=== PATIENT | female | born 1960 | race Caucasian/White ===

== ENCOUNTER 2016-03-04 08:02 | Observation (INO) | payer OTHER ==
--- NOTE | 2016-02-15 18:06 | DIAGNOSTIC IMAGING REPORT ---
CHEST 2 VIEWS ROUTINE HISTORY: Preop. COMPARISON: Chest 07/14/2005. FINDINGS: The lungs are clear. Cardiac silhouette is normal in size. No pleural effusions. No pneumothorax. Prior cholecystectomy. IMPRESSION: No acute process. Electronically signed by: Sanchez Sun M.D. 02/15/2016 6:04 PM Dictated Date/Time: 02/15/2016 6:03 PM
[2016-02-15 18:08] LABS: BASO % 0.2 %; BASO ABS # 0.03 K/uL (0-0.2); COMPLETE YES; EOS % 0.8 %; HEMATOCRIT 37.8 % (37-47); IG% 0.6 %; LYMPH % 20.5 %; LYMPH ABS # 2.61 K/uL (1.2-3.4); MEAN CELL VOLUME 83.1 fL (80-100); MEAN CORPUSCULAR HEMOGLOBIN 27.7 pg (25-34); MEAN CORPUSCULAR HGB CONC 33.3 g/dl (32-36); MEAN PLATELET VOLUME 10.3 fL (7.4-10.4); NEUT % 68.9 %; PLATELET COUNT 360 K/uL (130-400); RED BLOOD COUNT 4.55 M/uL (4.2-5.4); WHITE BLOOD COUNT 12.76 K/uL (4.8-10.8)
[2016-02-15 18:43] LABS: BLOOD UREA NITROGEN 13 mg/dl (7-18); CALCIUM 8.9 mg/dl (8.5-10.1); CARBON DIOXIDE 29 mmol/L (21-32); CHLORIDE 103 mmol/L (98-107); CREATININE 0.89 mg/dl (0.60-1.20); GLUCOSE 86 mg/dl (70-99); POTASSIUM 3.8 mmol/L (3.5-5.1); SODIUM 140 mmol/L (136-145)
[2016-02-29 11:49] VITALS: BMI 38.0
[2016-03-04] VITALS (7 sets, daily range): BP systolic 100–132; BP diastolic 59–73; PULSE 88–108; TEMP 36.6–37.1; O2SAT 95–100; Ht 160 cm; Wt 99.1 kg
[~2016-03-04] VITALS: Ht 160 cm; Wt 99.1 kg
[~2016-03-04 08:02] MED LIST: ALBU0.633 NEB; ASPI1TAB83 PO; CEFAZOLIN 2000 MG/60 ML D5W IV SCH; CLR10 PO; CYCL10TA6 PO; HYDR12.55 PO; IMT100 PO; LACTATED RINGER'S 1000ML 1,000 ML IV SCH; LEVO88TA PO; LORA-741 PO; LOSA1TAB38 PO; MOME200A INH; MONT1TAB3 PO; PANT1TAB48 PO; SERT50TA PO; SUCR1TAB29 PO; VNTHFA/IN INH; ZNT/150 PO
[2016-03-04] MEDS ORDERED: NALOXONE HCL 0.4 MG/1 ML VIAL/CARP IV PRN (08:45)
[2016-03-04] MEDS ORDERED: FENTANYL CITRATE INJ 50 MCG/1 ML 2 ML VIAL IV PRN (08:45)
[2016-03-04] MEDS ORDERED: MEPERIDINE HCL 25 MG/ML CARP IV PRN (08:45)
[2016-03-04] MEDS ORDERED: FLUMAZENIL 0.1 MG/1 ML 10 ML VIAL IV PRN (08:45)
[2016-03-04] MEDS ORDERED: LABETALOL HCL IV 5 MG/ML 20ML IV PRN (08:45)
[2016-03-04] MEDS ORDERED: SCOPOLAMINE 1.5 MG TDSY TD ONE (08:45)
[2016-03-04] MEDS ORDERED: ONDANSETRON INJ 2 MG/ML 2 ML VIAL IV PRN ×2 (08:45→11:30)
[2016-03-04] MEDS ORDERED: EpHEDrine SULFATE INJ 50 MG/ML AMP IV PRN (08:45)
[2016-03-04] MEDS ORDERED: ATROPINE SULFATE 0.1 MG/ML 5ML SYR IV PRN (08:45)
[2016-03-04] MEDS ORDERED: HYDROmorphone INJ 2 MG/ML SYR/VIAL IV PRN (08:45)
[2016-03-04] MEDS ORDERED: PHENYLEPHRINE 100MCG/ML 5ML SYR IV PRN (08:45)
--- NOTE | 2016-03-04 08:49 | History & Physical Bridge Note ---
H&P Re-Evaluation Bridge Note: I have examined the patient, reviewed the History & Physical and in the interval since the performance of the History & Physical I have noted the following changes of clinical significance: No changes noted
[2016-03-04] MEDS ORDERED: AZEL1.5M NAE (08:58)
[2016-03-04] MEDS ORDERED: MIDAZOLAM HCL 1 MG/ML 2ML VIAL ONE (09:21)
[2016-03-04] MEDS ORDERED: FENTANYL CITRATE INJ 50 MCG/1 ML 2 ML VIAL ONE ×3 (09:22→11:11)
[2016-03-04] MEDS ORDERED: ROCURONIUM BROMIDE 10 MG/ML 5 ML VIAL ONE (09:23)
[2016-03-04] MEDS ORDERED: DEXAMETHASONE SOD INJ 4 MG/ML VIAL ONE (09:23)
[2016-03-04] MEDS ORDERED: PROPOFOL IV EMULSION 10 MG/ML 20 ML VIAL IV ONE (09:23)
[2016-03-04] MEDS ORDERED: ONDANSETRON INJ 2 MG/ML 2 ML VIAL ONE (09:23)
[2016-03-04] MEDS ORDERED: LIDOCAINE HCL 2% 2 ML VIAL (20MG/ML) ONE (09:23)
[2016-03-04] MEDS ORDERED: NEOSTIGMINE METHYLSULFATE 5 MG/5 ML SYR ONE (09:24)
[2016-03-04] MEDS ORDERED: GLYCOPYRROLATE INJ 0.2 MG/ML VIAL ONE (09:24)
[2016-03-04] MEDS ORDERED: CEFAZOLIN SOD 1 GM VIAL ONE (10:16)
[2016-03-04] MEDS ORDERED: TISSEEL FIBRIN SEALANT 4ML TOP ONE (10:58)
[2016-03-04] MEDS ORDERED: KETOROLAC TROMETHAMINE 30 MG/ML VIAL ONE (11:04)
[2016-03-04] MEDS ORDERED: BUPIVACAINE 0.5 % 5 MG/1 ML MPF 30ML VIAL INJ ONE (11:17)
[2016-03-04] MEDS ORDERED: LACTATED RINGER'S 1000ML 1,000 ML IV SCH (11:20)
--- NOTE | 2016-03-04 11:23 | [facility] Post Operative Brief Note ---
Immediate Operative Summary Operative Date Mar 04, 2016. Pre-Operative Diagnosis 1. Menorrhagia 2. Pelvic pain 3. Failed endometrial ablation Post-Operative Diagnosis 1. Menorrhagia 2. Pelvic pain 3. Failed endometrial ablation Procedure(s) Performed Robotic Assisted Laparoscopic Hysterectomy with Bilateral Salpingo-Oopectomy, Cystoscopy Surgeon Dr. Kirby Her Ginner Surgeon(s) Dr. Kg Johnson Estimated Blood Loss 5 ML Findings normal anatomy Specimens Permanent specimen A: Uterus, cervix, bilateral Fallopian tube and bilateral ovaries Drains Castellon Anesthesia General Complication(s) None Disposition Recovery Room / PACU
[2016-03-04] MEDS ORDERED: MTR600X PO (11:24)
[2016-03-04] MEDS ORDERED: OXYC-57 PO (11:24)
--- NOTE | 2016-03-04 11:24 | Discharge Instructions ---
Discharge Instructions Admission Reason for Admission: Post Menopausal Syndrome Discharge Discharge Diagnosis / Problem: menorrhagia, pelvic pain Discharge Goals Goal(s): Routine recovery after surgery Activity Recommendations Activity Limitations: per Instructions/Follow-up section . Instructions / Follow-Up Instructions / Follow-Up POST OPERATIVE: BOWEL FUNCTION/MEDICATIONS: 1. Constipation pain and discomfort are the most common complaints 5-7 days after surgery. Points 2-6 address the things that can help. 2. Chewing gum can help stimulate the gut and help improve digestion and motility. 3. Milk of Magnesia 1-2 times per day until return of bowel function. 4. Colace is a stool softener that helps. Taking this 2-3 times per day until bowel function returns to normal is highly recommended. 5. Dulcolax is a laxative that may be used if several days have passed without a bowel movement. Alternatively Miralax may be used daily instead. 6. Drink plenty of fluids as this will also reduce constipation. 7. Narcotic pain medications will be prescribed by your physician. They are safe to use and we encourage you to use them. If you are not allergic, ibuprofen will also be prescribed. Many patients will be able to transition off of the narcotic medications to ibuprofen by postoperative day 3. ACTIVITY RECOMMENDATIONS: 1. Get plenty of rest and listen to your body. If you are tired, take a nap. 2. You may shower, but do not take a tub bath until you see your doctor at the 2 week post operative visit. 3. Absolutely NO intercourse and nothing in the vagina until you are examined by your doctor at the 6 week visit. At that visit it will be determined when such activities can be resumed. This can range from 6-12 weeks after your surgery depending on healing time. 4. The main physical activity in the first week should be walking. By the second week you can slowly increase activity. There are no limits on walking up and down stairs. 5. Do not lift more than 5-10 lbs for 4 weeks. Remember the "one-handed rule", i.e. if you can lift something with only one hand it's likely okay. 6. Minimize rn home health like vacuuming and exercising for 4 weeks. "Overdoing it" can lead to incisions not healing, pain and vaginal bleeding , so again, listen to your body. 7. Driving can be resumed when you feel able. Do not drive within 24 hours of taking a narcotic medication. EXPECTATIONS: 1. Vaginal spotting, bleeding and discharge are common after surgery. There may even be an odor to the discharge which is often related to sutures used in the vagina. If you experience heavy vaginal bleeding, call the office number day or night [phone]. 2. Bladder discomfort is common after surgery from the catheter. This usually resolves in 1-2 weeks. 3. By the end of the 3rd or 4th week you should be feeling much better. It may take up to 6 weeks for your energy levels to return to normal. 4. Narcotic medications have side effects such as: dizziness, headache, nausea and/or vomiting. If you suspect your pain medication is causing problems, call our office and we may be able to prescribe an alternate medication. 5. The skin incisions are often covered with a liquid bandage. This will gradually peel off over time. CALL THE OFFICE IF YOU HAVE ANY OF THE FOLLOWIN. Temperature of 101 degrees or higher. 2. Severe abdominal or pelvic pain not relieved by pain medication. 3. Persistent nausea or vomiting. 4. Increased pain with urination or difficulty urinating. 5. Bright red bleeding that soaks more than 1 pad per hour. CONTACT PHONE NUMBERS: Main Office: [phone] Surgical Nurse: [phone] extension [phone] Avoid all tobacco products. If you need help to stop smoking, call [place]'s FREE QUITLINE at . This is a free call. Current Hospital Diet Patient's current hospital diet: Discharge Diet Recommended Diet: Regular Diet Procedures Procedures Performed: Robotic Assisted Laparoscopic Hysterectomy with Bilateral Salpingo-Oopectomy, Cystoscopy Pending Studies Studies pending at discharge: no Medical Emergencies . Who to Call and When: Medical Emergencies: If at any time you feel your situation is an emergency, please call 911 immediately. . Non-Emergent Contact Non-Emergency issues call your: Primary Care Provider . . "Provider Documentation" section prepared by Kirby Her. VTE Core Measure Inpt VTE Proph given/why not?: Satish Fan, MADDY's
[2016-03-04] MEDS ORDERED: ACETAMINOPHEN 325 MG TAB PO PRN (11:30)
[2016-03-04] MEDS ORDERED: MEPERIDINE HCL 50 MG/ML CARP IV PRN (11:30)
[2016-03-04] MEDS ORDERED: PROMETHAZINE HCL INJ 25 MG in SODIUM CHLORIDE 0.9% 50ML 50 ML IV PRN (11:30)
[2016-03-04] MEDS ORDERED: MEPERIDINE HCL 75 MG/ML CARP IV PRN (11:30)
[2016-03-04] MEDS ORDERED: BISACODYL 10 MG SUPP PR PRN (11:30)
[2016-03-04] MEDS ORDERED: PROMETHAZINE HCL INJ 12.5 MG in SODIUM CHLORIDE 0.9% 50ML 50 ML IV PRN (11:30)
[2016-03-04] MEDS ORDERED: MAGNESIUM HYDROXIDE SUSP 30 ML UDC PO PRN (11:30)
[2016-03-04] MEDS ORDERED: ZOLPIDEM TARTRATE 5 MG TAB PO PRN (11:30)
[2016-03-04] MEDS ORDERED: SIMETHICONE 80 MG CHEW PO PRN (11:30)
[2016-03-04] MEDS ORDERED: IBUPROFEN 600 MG TAB PO PRN (11:30)
[2016-03-04] MEDS ORDERED: KETOROLAC TROMETHAMINE 30 MG/ML VIAL IV. PRN (11:30)
[2016-03-04] MEDS ORDERED: OXYCODONE/ACETAMINOPHEN 5-325 TAB PO PRN ×2 (11:30)
[2016-03-04] MEDS ORDERED: IV FLUIDS COMPLETED PRN (12:00)
--- NOTE | 2016-03-04 12:58 | Anesthesiology Progress Note ---
Anesthesia Post Op Note Date & Time Mar 04, 2016 at 12:58 Vital Signs Pain Intensity: 0 Vital Signs Past 12 Hours Date Time Temp Pulse Resp B/P Pulse Ox O2 Delivery O2 Flow Rate FiO2 03/04/16 12:38 122/63 03/04/16 12:35 101 16 03/04/16 12:35 101 16 95 03/04/16 12:33 114/72 03/04/16 12:30 100 14 96 03/04/16 12:30 103 14 03/04/16 12:28 115/62 03/04/16 12:25 102 16 03/04/16 12:25 101 16 96 03/04/16 12:23 120/63 03/04/16 12:20 102 14 03/04/16 12:20 101 14 96 03/04/16 12:18 117/57 03/04/16 12:15 95 14 03/04/16 12:15 95 14 95 03/04/16 12:13 109/60 03/04/16 12:10 95 15 94 03/04/16 12:10 96 15 03/04/16 12:08 115/57 03/04/16 12:05 98 13 96 03/04/16 12:05 97 13 03/04/16 12:04 36.5 98 16 115/57 95 Nasal Cannula 2 03/04/16 12:03 119/57 03/04/16 12:00 97 12 03/04/16 12:00 96 12 96 03/04/16 11:59 97 15 95 03/04/16 11:59 95 15 03/04/16 11:58 111/53 03/04/16 11:54 93 13 03/04/16 11:54 91 13 94 03/04/16 11:53 108/62 03/04/16 11:51 95 13 03/04/16 11:51 93 13 95 03/04/16 11:48 119/54 03/04/16 11:46 97 13 03/04/16 11:46 97 13 93 03/04/16 11:43 127/61 03/04/16 11:41 94 14 99 03/04/16 11:41 95 14 03/04/16 11:38 118/52 03/04/16 11:36 105 19 03/04/16 11:36 105 19 100 03/04/16 11:36 36.3 102 16 124/55 99 Mask 10 03/04/16 09:18 36.6 97 16 132/72 100 Room Air Notes Mental Status: alert / awake / arousable, participated in evaluation Pt Amnestic to Procedure: Yes Nausea / Vomiting: adequately controlled Pain: adequately controlled Airway Patency, RR, SpO2: stable & adequate BP & HR: stable & adequate Hydration State: stable & adequate Anesthetic Complications: no major complications apparent
[2016-03-04] MEDS ORDERED: CHECK SCOPOLAMINE PATCH PLACEMENT SCH (16:00)
[2016-03-04] MEDS ORDERED: DOCUSATE SODIUM 100 MG CAP PO SCH (21:00)
--- NOTE | 2016-03-04 22:52 | OPERATIVE REPORT ---
DATE OF OPERATION: 03/04/2016 PREOPERATIVE DIAGNOSES: Menorrhagia, pelvic pain, failed endometrial ablation. POSTOPERATIVE DIAGNOSES: Same. PROCEDURE: Robotically assisted total laparoscopic hysterectomy, bilateral salpingo-oophorectomy, cystoscopy. SURGEON: Dr. Her. METAL WASHING MACHINE OPERATOR: Dr. Johnson ESTIMATED BLOOD LOSS: 5 mL FINDINGS: Normal anatomy. SPECIMENS: Uterus, cervix, bilateral fallopian tubes, bilateral ovaries. DRAINS: Castellon catheter. ANESTHETIC: General. COMPLICATIONS: None. DISPOSITION: To recovery room. DESCRIPTION OF PROCEDURE: Bianca was given a general anesthetic, prepped and draped in dorsal lithotomy position in [facility]. Bladder drained with Castellon catheter. V-care sewn into place in the usual fashion. Gloves changed and a supraumbilical incision made with scalpel. Using open Nelly technique, we did open cut down, placed a blunt-tip port with a balloon and were able to insufflate this with air. Once this was done, CO2 to insufflate the abdomen and peritoneal cavity. FINDINGS: Upper abdomen normal, no sign of visceral organ injury. Trendelenburg position obtained. Uterus appeared normal. The uterine manipulator balloon was visualized through the fundus of the uterus but we had good manipulation of the uterus. Both adnexa appeared normal and both ureters seemed to follow a normal course. Two robotic ports were then placed on the left and right side, and under direct visualization, 8 mm and then an 11 mm accessory port placed, bladeless. Robot was then docked, arm #1 monopolar joe, arm #2 bipolar [place]. Then, taking control of the robotic console and using the V-care to manipulate, I was able to identify first on the left side the course of the ureter. We made an opening into the broad ligament using the monopolar joe and then dissected the ureter out directly, found it, and then made a window above it to be able to ligate the ovarian artery and vein proximal to the ovary. This was done with bipolar [place]. We then skeletonized and proceeded to coagulate and cut the round ligament. Uterine vessels were then skeletonized. Bladder flap sharply dissected away and uterine vessels were then coagulated and then cut in the usual fashion and these were well away from the ureter as well. Exact same process was completed on the right. Once the bladder flap was fully dissected away, I was able to make an anterior colpotomy easily using the monopolar joe, continuing this around until staying medial of our uterine vessel ligations. Once the cervix was fully detached from the vagina, specimen was pulled into the vagina and removed. This included the ovaries and fallopian tubes. A sponge in a glove was then placed for pneumoperitoneum. Instrument exchange then occurred. Arm #1 became the Deric needle dedicated truck driver, arm #2 became the cobra grasper. IV methylene blue was given by anesthesia. Please note, IV Ancef was given preoperatively as well. The cup was closed using a 12-inch 90-day 2-0 V-Loc suture from left to right, back right to left, being sure to incorporate at least 1 cm bites of vaginal mucosa for full thickness. Suture was then cut so there was no tail, needle removed from the accessory port. After generous irrigation and suction, we applied Tisseel to the area and then we were able to undock the robot. Note, suction irrigation had occurred prior to this. Instruments removed, and under direct visualization, ports removed. Robot undocked. Gas allowed to escape. Incisions were injected with 0.5% Marcaine. Fascia closed with several interrupted 0 Vicryl sutures and then deep subcutaneous fat suture as well as with closure deep sutures of the left upper quadrant port. 4-0 subcuticular Monocryl closures and Dermabond applied. Castellon catheter removed. Good strong jets of urine were seen from both left and right ureter openings. There was no trauma or damage to the bladder and no pathology seen. Cystoscope removed and a new Castellon catheter placed. Sponge had been removed from the vagina. There was no active bleeding from the vagina noticed. The patient sent to recovery room in stable condition. Sponge and instrument counts correct. I attest to the content of the Intraoperative Record and any orders documented therein. Any exceptio ns are noted below.
--- NOTE | 2016-03-08 09:08 | DISCHARGE SUMMARY ---
Bianca had a total laparoscopic hysterectomy and bilateral salpingo-oophorectomy and cystoscopy on 03/04/2016. This procedure was uncomplicated. She was discharged a mere few hours later, as she met discharge criteria. Several hours later she was voiding, ambulating, tolerating oral pain medication, had minimal bleeding or pain. Had no extremity pain. PHYSICAL EXAMINATION: Her vitals were stable. She was afebrile. IMPRESSION AND PLAN: Several hours post total laparoscopic hysterectomy. Discharged home. Instructions given and appropriate pain medication given.
== END 2016-03-04 19:00 | disposition home or self-care (01) ==
LOC: ENRESERVTM → ENRESERVDT → C.ACU 08:02 → C.MS4N 09:00
PROVIDERS: ADMIT Obstetrics & Gynecology; ATTEND Obstetrics & Gynecology
DX: N92.0 Excessive and frequent menstruation with regular cycle (principal); R10.2 Pelvic and perineal pain

== ENCOUNTER 2016-03-05 21:59 | Emergency (ER) | payer OTHER ==
[~2016-03-05] VITALS: Ht 160 cm; Wt 102.2 kg
[~2016-03-05 21:59] MED LIST changes: +AZEL1.5M NAE; -CEFAZOLIN 2000 MG/60 ML D5W IV SCH; -LACTATED RINGER'S 1000ML 1,000 ML IV SCH; +MTR600X PO; +OXYC-57 PO
[2016-03-05 22:16] VITALS: Ht 160 cm; Wt 102.2 kg
[2016-03-05] MEDS ORDERED: ACETAMINOPHEN 500 MG TAB PO STA (22:42)
[2016-03-05] MEDS ORDERED: SODIUM CHLORIDE 0.9% 1000ML 1,000 ML IV STA (22:42)
--- NOTE | 2016-03-05 23:00 | DIAGNOSTIC IMAGING REPORT ---
CHEST ONE VIEW PORTABLE CLINICAL HISTORY: Fever and sepsis COMPARISON STUDY: 02/15/2016 FINDINGS: The heart is normal in size. There is mild elevation of the interstitium. There are increased right infrahilar markings. An area of infrahilar pulmonary consolidation is suspected. There are no pleural effusions.[ IMPRESSION: 1. Elevation of the interstitium, a finding which may indicate an interstitial inflammatory process 2. Right infrahilar opacity, statistically inflammatory. Clinical and radiographic follow-up is recommended. Electronically signed by: Minesh Gleason M.D. 03/05/2016 10:59 PM Dictated Date/Time: 03/05/2016 10:57 PM
[2016-03-05 23:32] LABS: BASO % 0.5 %; BASO ABS # 0.03 K/uL (0-0.2); COMPLETE YES; EOS % 1.4 %; HEMATOCRIT 33.4 % (37-47); IG% 0.4 %; LYMPH % 10.6 %; MEAN CORPUSCULAR HEMOGLOBIN 28.5 pg (25-34); MEAN CORPUSCULAR HGB CONC 33.5 g/dl (32-36); MEAN PLATELET VOLUME 10.2 fL (7.4-10.4); NEUT % 78.1 %; PLATELET COUNT 225 K/uL (130-400); RED BLOOD COUNT 3.93 M/uL (4.2-5.4); WHITE BLOOD COUNT 5.68 K/uL (4.8-10.8)
[2016-03-05] MEDS ORDERED: LEVAQUIN 750MG / 150ML D5W IV STA (23:57)
[2016-03-06 00:08] LABS: ALT/SGPT 27 U/L (12-78); BLOOD UREA NITROGEN 16 mg/dl (7-18); BUN/CREATININE RATIO 15.5 (10-20); CALCIUM 8.3 mg/dl (8.5-10.1); CARBON DIOXIDE 24 mmol/L (21-32); CHLORIDE 107 mmol/L (98-107); GLUCOSE 102 mg/dl (70-99); SODIUM 141 mmol/L (136-145)
[2016-03-06 00:11] LABS: PROTHROMBIN TIME (PATIENT) 10.7 SECONDS (9.0-12.0)
[2016-03-06 00:16] VITALS: TEMP 37.2
[2016-03-06] MEDS ORDERED: OSELTAMIVIR PHOSPHATE 75 MG CAP PO ONE (00:30)
[2016-03-06] MEDS ORDERED: LEVO-366 PO (00:39)
[2016-03-06] MEDS ORDERED: OSEL75CA12 PO (00:39)
[2016-03-06] MEDS ORDERED: ONDA4TAB10 SL (00:41)
--- NOTE | 2016-03-06 00:41 | EMERGENCY ROOM VISIT NOTE ---
History Report prepared by David: Stella Delarosa Under the Supervision of: Dr. Jhon Preciado D.O. First contact with patient: 22:36 Chief Complaint: FEVER Stated Complaint: FEVER History of Present Illness The patient is a 55 year old female who presents to the Emergency Room with complaints of a persistent fever that started 4.5 hours ago. She had a complete hysterectomy done yesterday. The patient states that when she first noticed the fever, her temperature was at 99, but then it spiked to 102. She took 600 mg of Motrin after calling the surgeon. Her fever spiked again to 105 after the Motrin , so she called the doctor again and they recommended coming into the ED. She did not take any Tylenol, but she states that she took a Percocet earlier today around 1100. She is also experiencing a cough, but denies nausea. 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 He immediately starts her on antibiotics and prednisone. The patient states that she had a sore throat yesterday, but she thinks it was a result of being intubated. The patient adds that she got the complete hysterectomy done because of spotting and pain. She is experiencing some abdominal pain. The procedure was done laparoscopically then removed via her vagina. The patient has experienced some very light spotting, but otherwise not discharge. She states that she is also experiencing lower lip numbness that she has been experiencing prior to surgery. Source of History: patient Onset: 4.5 hours ago Position: other (generalized) Quality: other (fever) Timing: other (persistent) Associated Symptoms: + abdominal pain, + cough, + numbness (lower lip), + sorethroat, No nausea Review of Systems See HPI for pertinent positives & negatives. A total of 10 systems reviewed and were otherwise negative. Past Medical & Surgical Medical Problems: (1) Menorrhagia (2) Pelvic pain Family History No pertinent family history Social History Smoking Status: Never Smoker Marital Status: Housing Status: lives with family Current/Historical Medications Scheduled Aspirin (Aspirin), 81 MG PO LAST 02/22/16 Azelastine HCl-Fluticasone Pro (Dermacinrx Azenase Alexis 137 & 50 Mcg/Act), 2 SPRAYS BHAVANI BID Hydrochlorothiazide (Hydrochlorothiazide), 1 TAB PO QAM Levofloxacin (Levaquin), 500 MG PO DAILY Levothyroxine Sodium (Synthroid), 88 MCG PO QAM Loratadine (Claritin), 10 MG PO QAM Lorazepam (Ativan), 0.5 MG PO HS Losartan Potassium (Cozaar), 100 MG PO HS Mometasone Furoate-Formoterol (Dulera 200/5 Mcg), 1 PUFF INH BID Montelukast Sodium (Singulair), 10 MG PO HS Ondasetron Odt (Zofran Odt), 4 MG SL Q6H Oseltamivir (Tamiflu), 75 MG PO BID Pantoprazole (Protonix), 40 MG PO BID Ranitidine Hcl (Zantac), 150 MG PO LUNCH Sertraline (Zoloft), 50 MG PO QAM Sucralfate (Carafate), 1 GM PO QID Scheduled PRN Albuterol Hfa (Ventolin Hfa), 2-4 PUFFS INH Q6H PRN for Shortness of Breath Albuterol Sulfate (Albuterol Sulfate), 1 VIAL NEB TID PRN for Shortness of Breath Cyclobenzaprine Hcl (Flexeril), 10 MG PO TID PRN for Pain Ibuprofen (Ibuprofen), 600 MG PO Q6H PRN for Pain,BRAGA,cramping,or fever Oxycodone/Acetaminophen 5MG/325MG (Percocet 5MG/325MG), 1 TAB PO Q4H PRN for Pain (pain scale 1-5) Sumatriptan Succinate (Imitrex), 100 MG PO UD PRN for Migraine Allergies Coded Allergies: Morphine (Verified Adverse Reaction, Mild, VOMITING, 03/05/16) Physical Exam Vital Signs Date Time Temp Pulse Resp B/P Pulse Ox O2 Delivery O2 Flow Rate FiO2 03/06/16 00:59 103 18 133/75 94 Room Air 03/06/16 00:16 37.2 03/05/16 23:42 109 03/05/16 22:16 39.5 122 18 150/79 93 Room Air Physical Exam CONSTITUTIONAL/VITAL SIGNS: Reviewed / noted above. GENERAL: Non-toxic in appearance. INTEGUMENTARY: Warm, dry, and [place]. HEAD: Normocephalic. EYES: without scleral icterus or trauma. ENT/OROPHARYNX: clear and moist. LYMPHADENOPATHY/NECK: Is supple without lymphadenopathy or meningismus. RESPIRATORY: Lungs clear and equal. CARDIOVASCULAR: Tachycardic rate and regular rhythm. GI/ABDOMEN: Soft. Mild tenderness to palpation over the incision site in the supraumbilical area, wound is without redness or discharge. Other wounds on abdomen appear normal and nontender. No organomegaly or pulsatile mass. No rebound or guarding. Normal bowel sounds. EXTREMITIES: Warm and well perfused. BACK: No CVA tenderness. NEUROLOGICAL: Intact without focal deficits. PSYCHIATRIC: normal affect. MUSCULOSKELETAL: Normally developed with good muscle tone. Medical Decision & Procedures ER Provider Diagnostic Interpretation: X ray results and stated below per my interpretation and radiologist interpretation. Other radiology results and stated below per my review and radiologist interpretation: CHEST ONE VIEW PORTABLE IMPRESSION: 1. Elevation of the interstitium, a finding which may indicate an interstitial inflammatory process 2. Right infrahilar opacity, statistically inflammatory. Clinical and radiographic follow-up is recommended. Electronically signed by: Minesh Gleason M.D. 03/05/2016 10:59 PM Dictated Date/Time: 03/05/2016 10:57 PM Laboratory Results 03/05/16 23:20 Red Blood Count 3.93, Mean Corpuscular Volume 85.0, Mean Corpuscular Hemoglobin 28.5, Mean Corpuscular Hemoglobin Concent 33.5, Mean Platelet Volume 10.2, Neutrophils (%) (Auto) 78.1, Lymphocytes (%) (Auto) 10.6, Monocytes (%) (Auto) 9.0, Eosinophils (%) (Auto) 1.4, Basophils (%) (Auto) 0.5, Neutrophils # (Auto) 4.44, Lymphocytes # (Auto) 0.60, Monocytes # (Auto) 0.51, Eosinophils # (Auto) 0.08, Basophils # (Auto) 0.03 03/05/16 23:20 Test 03/05/16 23:03 03/05/16 23:20 03/05/16 23:49 Influenza Type A Antigen POS for Influ A (NEG) Influenza Type B Antigen Neg for Influ B (NEG) White Blood Count 5.68 K/uL (4.8-10.8) Red Blood Count 3.93 M/uL (4.2-5.4) Hemoglobin 11.2 g/dL (12.0-16.0) Hematocrit 33.4 % (37-47) Mean Corpuscular Volume 85.0 fL (80-100) Mean Corpuscular Hemoglobin 28.5 pg (25-34) Mean Corpuscular Hemoglobin Concent 33.5 g/dl (32-36) Platelet Count 225 K/uL (130-400) Mean Platelet Volume 10.2 fL (7.4-10.4) Neutrophils (%) (Auto) 78.1 % Lymphocytes (%) (Auto) 10.6 % Monocytes (%) (Auto) 9.0 % Eosinophils (%) (Auto) 1.4 % Basophils (%) (Auto) 0.5 % Neutrophils # (Auto) 4.44 K/uL (1.4-6.5) Lymphocytes # (Auto) 0.60 K/uL (1.2-3.4) Monocytes # (Auto) 0.51 K/uL (0.11-0.59) Eosinophils # (Auto) 0.08 K/uL (0-0.5) Basophils # (Auto) 0.03 K/uL (0-0.2) RDW Standard Deviation 43.5 fL (36.4-46.3) RDW Coefficient of Variation 13.9 % (11.5-14.5) Immature Granulocyte % (Auto) 0.4 % Immature Granulocyte # (Auto) 0.02 K/uL (0.00-0.02) Anion Gap 10.0 mmol/L (3-11) Est Creatinine Clear Calc Drug Dose 74.3 ml/min Estimated GFR () 74.5 Estimated GFR (Non- 64.3 BUN/Creatinine Ratio 15.5 (10-20) Calcium Level 8.3 mg/dl (8.5-10.1) Total Bilirubin 0.2 mg/dl (0.2-1) Direct Bilirubin mg/dl (0-0.2) Aspartate Amino Transf (AST/SGOT) 23 U/L (15-37) Alanine Aminotransferase (ALT/SGPT) 27 U/L (12-78) Alkaline Phosphatase 98 U/L (45-117) Total Creatine Kinase 130 U/L (26-192) Creatine Kinase MB < 0.5 ng/ml (0.5-3.6) Creatine Kinase MB Ratio (0-3.0) Troponin I < 0.015 ng/ml (0-0.045) Total Protein 6.3 gm/dl (6.4-8.2) Albumin 3.1 gm/dl (3.4-5.0) Lipase 130 U/L (73-393) Chemistry Specimen Hemolysis Prothrombin Time 10.7 SECONDS (9.0-12.0) Prothromb Time International Ratio 1.0 (0.9-1.1) Activated Partial Thromboplast Time 26.1 SECONDS (21.0-31.0) Partial Thromboplastin Ratio 1.0 Laboratory results as stated above per my review. Medications Administered Medications (Trade) Dose Ordered Sig/Trey Route Start Time Stop Time Status Last Admin Dose Admin Sodium Chloride (Nss 1000ml) 1,000 ml @ 999 mls/hr Q1H1M STAT IV 03/05/16 22:42 03/05/16 23:42 DC 03/05/16 23:30 999 MLS/HR Acetaminophen (Tylenol Tab) 1,000 mg NOW STAT PO 03/05/16 22:42 03/05/16 22:45 DC 03/05/16 23:28 1,000 MG Levofloxacin (Levaquin / D5W) 750 mg NOW STAT IV 03/05/16 23:57 03/05/16 23:58 DC 03/06/16 00:09 750 MG Oseltamivir Phosphate (Tamiflu Cap) 75 mg ONE ONCE PO 03/06/16 00:30 03/06/16 00:31 DC 03/06/16 02:02 75 MG ECG Indication: abdominal pain Rate (beats per minute): 107 Rhythm: sinus tachycardia Findings: no acute ischemic change, no ectopy ED Course 2242: Previous medical records were reviewed. The patient was evaluated in room B2. A complete history and physical examination was performed. 2242: Ordered Tylenol Tab 1000 mg PO, Sodium Chloride 1000 ml @ 999 mls/hr IV 2357: Ordered Levofloxacin 750 mg IV 0018: I updated the patient on her chest x-ray results. 0027: I reassessed the patient and informed her that she is positive for the flu. 0030: Ordered Tamiflu Cap 75 mg PO 0042: The patient was signed out to Dr. Goodson at change of shift. She is awaiting her CT scan. Medical Decision Differential includes viral illness, influenza, streptococcal pharyngitis, meningitis, pneumonia, sinusitis, UTI, pyelonephritis, otitis media. This is a 55-year-old female who presents with a chief complaint of a fever. The patient states that she had a hysterectomy yesterday. He was a laparoscopic hysterectomy. The patient developed a fever tonight around 6 PM. Her fever increased after taking Motrin. She reports a slight cough and a little abdominal discomfort. Her discomfort is not any worse than it was earlier. The patient's temperature here today is 39.5. Heart rate was 122. She is in no acute distress and nontoxic in appearance. She appears comfortable. Her exam was not very remarkable. Throat was clear. No lymphadenopathy. Lungs did not reveal any obvious abnormalities. Abdomen was soft and mildly tender over the supraumbilical incision. The patient's extremities were without tenderness or rashes. A chest x-ray suggests a right lower lobe pneumonia. CBC was unremarkable. EKG shows a sinus tachycardia rate of 107. Chemistries are unremarkable. Lipase is negative. Influenza testing is positive for influenza A. CT scan did not show acute process. The patient was treated with IV Levaquin for the pneumonia and Tamiflu for influenza A. Impression Primary Impression: Influenza A Additional Impression: Pneumonia Scribe Attestation The scribe's documentation has been prepared under my direction and personally reviewed by me in its entirety. I confirm that the note above accurately reflects all work, treatment, procedures, and medical decision making performed by me. Departure Information Dispostion Home / Self-Care Prescriptions Ondasetron Odt (ZOFRAN ODT) 4 Mg Tab 4 MG SL Q6H for Nausea, #20 TAB Prov: Jhon Preciado D.O. 03/06/16 Levofloxacin (Levaquin) 500 Mg Tab 500 MG PO DAILY for 7 Days, #7 TAB Prov: Jhon Preciado D.O. 03/06/16 Oseltamivir (Tamiflu) 75 Mg Cap 75 MG PO BID, #10 CAP Prov: Jhon Preciado D.O. 03/06/16 Referrals (PCP) Patient Instructions Flu, [facility] Additional Instructions Tamiflu as prescribed for the flu. Levaquin as prescribed for pneumonia. Zofran: Allow one tablet to dissolve under the tongue every 6 hours as needed for nausea or vomiting. Follow-up with your doctor for recheck this week. Problem Qualifiers
[2016-03-06 00:43] LABS: ALKALINE PHOSPHATASE 98 U/L (45-117); AST/SGOT 23 U/L (15-37)
[2016-03-06] MEDS ORDERED: OPTIRAY 320 IV PRN (00:45)
[2016-03-06 00:59] VITALS: BP 133/75; PULSE 103; O2SAT 94
--- NOTE | 2016-03-06 06:55 | EMERGENCY ROOM VISIT NOTE ---
ED Visit Note 55 yr old patient diagnosed with Flu and Pna by Dr Preciado though as post op fever she was sent for CT Abdo/pelv at which time was signed out to me to await results and if normal to discharge to home. CT with post surgical findings without acute other issues. She is feeling well and wishes to be discharged. Stable and breathing comfortable in no distress.
--- NOTE | 2016-03-06 08:41 | DIAGNOSTIC IMAGING REPORT ---
ABDOMEN AND PELVIS CT WITH IV CONTRAST CT DOSE: 1029.69 mGy.cm HISTORY: fever, recent hysterectomy TECHNIQUE: Multiaxial CT images of the abdomen and pelvis were performed following the use of intravenous contrast. COMPARISON STUDY: None. FINDINGS: Trace bilateral pleural effusions. Mild bibasilar subsegmental atelectasis. There are few punctate foci of extraperitoneal gas within the deep pelvis and a small amount of left abdominal wall subcutaneous emphysema. This is likely due to postoperative change given the recent hysterectomy. No suspicious lytic or blastic osseous lesions. Cholecystectomy. The liver, pancreas, spleen, adrenal glands, and kidneys are unremarkable. No retroperitoneal lymphadenopathy. The bladder is unremarkable. Minimal edema/fat stranding at the vaginal cuff. Trace fluid within the left lower quadrant. No loculated fluid collections to suggest an abscess. No bowel wall thickening or obstruction. Normal appendix. IMPRESSION: 1. Status post recent hysterectomy. Minimal fat stranding/edema at the surgical bed and trace extraperitoneal gas in the pelvis. This is consistent with expected postoperative change. No loculated fluid collections to suggest an abscess. 2. No bowel wall thickening or obstruction. 3. Trace bilateral pleural effusions. 4. Additional findings as described above. Electronically signed by: Sanchez Sun M.D. 03/06/2016 8:40 AM Dictated Date/Time: 03/06/2016 8:33 AM
== END 2016-03-06 03:05 | disposition home or self-care (01) ==
LOC: C.EDB 22:00
DX: J10.1 Influenza due to other identified influenza virus with other respiratory manifestations (principal); J18.9 Pneumonia, unspecified organism; Z98.890 Other specified postprocedural states; Z79.82 Long term (current) use of aspirin; Z79.899 Other long term (current) drug therapy

== ENCOUNTER → 2016-07-07 | Outpatient (CLI) | payer OTHER ==
[~2016-07-07] MED LIST changes: +ONDA4TAB10 SL; +OSEL75CA12 PO
--- NOTE | 2016-07-07 12:55 | MAMMOGRAPHY REPORT ---
BILATERAL DIGITAL SCREENING MAMMOGRAM TOMOSYNTHESIS WITH CAD: 07/07/2016 CLINICAL HISTORY: Routine screening. Patient has no complaints. TECHNIQUE: Breast tomosynthesis in addition to standard 2D mammography was performed. Current study was also evaluated with a Computer Aided Detection (CAD) system. COMPARISON: Comparison is made to exams dated: 06/19/2015 mammogram, 06/13/2014 mammogram, 06/07/2013 irais mogram, 06/01/2012 mammogram, 05/18/2011 mammogram, and 11/24/2010 mammogram - [facility] nter. BREAST COMPOSITION: The tissue of both breasts is almost entirely fatty. FINDINGS: No suspicious masses, calcifications, or areas of architectural distortion are noted in ei ther breast. There has been no significant interval change compared to prior exams. IMPRESSION: ACR BI-RADS CATEGORY 1: NEGATIVE There is no mammographic evidence of malignancy. A 1 year screening mammogram is recommended. The pa tient will receive written notification of the results. Approximately 10% of breast cancers are not detected with mammography. A negative mammographic report should not delay biopsy if a clinically suggestive mass is present. Mary Rodriguez M.D. /:07/07/2016 09:20:01 Medical Office Receptionist: Gracie GLYNN(Trell)(Elijah)([place]), [facility] letter sent: Normal 1/2 BI-RADS Code: ACR BI-RADS Category 1: Negative
== END | disposition home or self-care (01) ==
LOC: C.MAMM 08:16
PROVIDERS: ATTEND Obstetrics & Gynecology
DX: Z12.31 Encounter for screening mammogram for malignant neoplasm of breast (principal)

== ENCOUNTER → 2017-04-12 | Outpatient (CLI) | payer OTHER ==
[~2017-04-12] MED LIST changes: -ONDA4TAB10 SL; +OPTIRAY 320 IV PRN; -OSEL75CA12 PO; +PANT1TAB3 PO; -PANT1TAB48 PO
--- NOTE | 2017-04-12 16:15 | DIAGNOSTIC IMAGING REPORT ---
(CHEST FOR PE) ANGIO WITH CLINICAL HISTORY: 56 years-old Female presenting with ^SOB, S/P TRAUMA 1 WEEK AGO. TECHNIQUE: Multidetector CT angiography of the chest was performed after administration of intravenous contrast. 3-D volumetric and/or maximum intensity projection (MIP) images were subsequently reconstructed for review. IV contrast: 100 mL of Optiray 320. A dose lowering technique was used consistent with the principles of ALARA (as low as reasonably achievable). COMPARISON: 07/06/2005. CT DOSE (mGy.cm): The estimated cumulative dose is 468.71 mGycm. FINDINGS: [employer] topogram: Cholecystectomy clips noted. Pulmonary vasculature: The study is suboptimal for the assessment of the pulmonary vascular tree secondary to respiratory motion artifact. Allowing for limited image quality, no central filling defect to suggest pulmonary embolus. Main pulmonary artery is not enlarged. No flattening of the interventricular septum. No intracardiac filling defect. No reflux of contrast into the hepatic veins. Remaining chest: On soft tissue windows, normal thyroid and thoracic inlet. No axillary, supraclavicular, hilar, or mediastinal lymphadenopathy. Atherosclerosis of the aorta. Normal heart size. No pericardial or pleural effusion. Splenule noted. On lung windows, allowing for motion artifact, mosaic attenuation could suggest small airways disease. Mild bronchial wall thickening evident diffusely. No other focal infiltrate or nodule. Central airways patent. On bone windows, degenerative changes of the spine. IMPRESSION: 1. Allowing for suboptimal image quality, no evidence of pulmonary embolus. 2. Findings consistent with reactive airways disease or bronchitis. Electronically signed by: Yair Huggins M.D. 04/12/2017 4:13 PM Dictated Date/Time: 04/12/2017 4:10 PM
== END | disposition home or self-care (01) ==
LOC: C.CTS 15:50
PROVIDERS: ATTEND Internal Medicine
DX: R06.02 Shortness of breath (principal)